=== PATIENT | female | born 1990 | race Caucasian/White ===

== ENCOUNTER → 2017-11-03 11:07 | Outpatient (CLI) | payer MEDICAID, SELFPAY ==
[2017-11-03 11:55] LABS: Absolute Lymphocyte Count 1.23 X10^3/ul (0.83-4.51); Absolute Neutrophil Count 6.9 X10^3/uL (2.0-7.7); Basophil# 0.01 X10^3/uL; Basophil% 0.1 % (0-1); Eosinophil# 0.04 X10^3/uL; Eosinophils% 0.5 % (0-5); Hematocrit 39.1 % (37-47); Hemoglobin 13.4 g/dl (12.0-15.0); Lymphocyte # 1.23 X10^3/ul (4.0); Mean Corp Hgb Conc 34.3 g/gl (32-36); Mean Corpuscular Hgb 30.8 pg (27.0-32.0); Mean Corpuscular Volume 89.9 fL (81-99); Mean Platelet Vol. 10.8 fl (6.2-12.0); Monocyte# 0.58 X10^3/uL; Monocyte% 6.6 % (0-10); Neutrophil # 6.88 X10^3/uL (2.7-7.7); Neutrophil % 78.6 % (47-70); Platelet Count 135 K/mm3 (150-450); RBC Distribution Width CV 13.4 % (11.6-14.6); RBC Distribution Width SD 43.8 fl (35.1-43.9); Red Blood Count 4.35 M/mm3 (4.2-5.4); White Blood Count 8.8 K/mm3 (4.4-11.0)
[2017-11-03 11:57] LABS: POSITIVE COUNT NO; POSITIVE DIFFERENTIAL NO; POSITIVE MORPHOLOGY NO
[2017-11-03 13:00] LABS: T4 Total, Thyroxin 13.9 ug/dL (4.8-13.9); Thyroid Stim Hormone (TSH) 2.27 uIU/mL (0.358-3.74)
== END ==
PROVIDERS: Visit Provider Internal Medicine Cardiovascular Disease
DX: R00.2 Palpitations (principal); R00.0 Tachycardia, unspecified
CPT/HCPCS: 36415; 84436; 84443; 85025

== ENCOUNTER → 2017-11-17 14:49 | Outpatient (CLI) | payer MEDICAID, SELFPAY ==
--- NOTE | 2017-11-17 14:50 | ECHOD_ITS ---
Reason For Study: TACHYCARDIA Procedure This was a 2D Doppler, Color Flow transthoracic echocardiogram. Exam performed in department. Left Ventricle Normal LV size. Left ventricular systolic function is normal. The estimated ejection fraction is 53 %. No evidence for diastolic dysfunction. No regional wall motion abnormalities noted. Right Ventricle Normal RV size. Normal systolic function. Atria Normal left atrium. Normal right atrium. Mitral Valve Normal mitral valve. Tricuspid Valve Normal tricuspid valve. Trivial tricuspid valve insufficiency. Aortic Valve Normal aortic valve. Trisinus/trileaflet aortic valve. Pulmonic Valve Normal pulmonic valve. Great Vessels Normal aortic root. The pulmonary artery is normal size. Normal inferior vena cava. Pericardium/Pleural No pericardial effusion. MMode/2D Measurements & Calculations LVIDd: 4.6 cm IVSd: 0.69 cm Ao root diam: 2.9 cm LVIDs: 3.3 cm LVPWd: 0.68 cm RVDd: 2.3 cm FS: 28.1 % LAV(MOD-bp): 22.2 ml EDV(MOD-sp4): 73.6 ml SV(MOD-sp4): 37.4 ml LAV(MOD-bp) Indexed: 13.3 ml/m2 ESV(MOD-sp4): 36.2 ml LAV(MOD-sp2): 21.7 ml EF(MOD-sp4): 50.8 % LAV(MOD-sp4): 23.7 ml LA A4 area: 11.7 cm2 RA A4 area: 13.9 cm2 Doppler Measurements & Calculations MV E max cuauhtemoc: 97.7 cm/sec Lat Peak E' Cuauhtemoc: 24.5 cm/sec Med Peak E' Cuauhtemoc: 16.7 cm/sec MV A max cuauhtemoc: 61.0 cm/sec E/E' lat: 4.0 E/E' med: 5.8 MV E/A: 1.6 Ao V2 max: 142.7 cm/sec LV V1 max: 98.8 cm/sec PA V2 max: 104.5 cm/sec Ao max P.1 mmHg LV V1 max P.9 mmHg TR max cuauhtemoc: 217.2 cm/sec TR max P.9 mmHg Interpretation Summary Normal LV size. Left ventricular systolic function is normal. The estimated ejection fraction is 53 %. No evidence for diastolic dysfunction. Structurally normal valves. Ordering Physician: Santhosh Wheeler Referring Physician: BILL FRANCIS Performed By: Belkis Benavides RDCS
== END ==
PROVIDERS: Visit Provider Internal Medicine Cardiovascular Disease
DX: R00.0 Tachycardia, unspecified (principal); R06.02 Shortness of breath
CPT/HCPCS: 93306